=== PATIENT | female | born 1990 | race Caucasian/White ===

== ENCOUNTER 2018-04-08 05:45 | Inpatient (IN) | payer OTHER ==
[~2018-04-08] VITALS: Ht 160 cm; Wt 82.5 kg
--- NOTE | ~2018-04-08 | OR ---
[facility] [address] [place] [id number] Draft DATE OF OPERATION: 04/08/2018 SURGEON: Lauren Gautam DO PREOPERATIVE DIAGNOSES: 1. Large fibroid uterus. 2. Abnormal uterine bleeding. 3. Dysmenorrhea. POSTOPERATIVE DIAGNOSES: 1. Large fibroid uterus. 2. Abnormal uterine bleeding. 3. Dysmenorrhea. 4. Intraoperative cystotomy. PROCEDURES PERFORMED: 1. Laparoscopic bilateral salpingectomy. 2. Total abdominal hysterectomy. 3. Repair of intraoperative cystotomy performed by . 4. Cystoscopy performed by Dr. Hailey Rogers. QUALITY ENGINEERING MANAGER: Pedro Faye MD. INTRAOPERATIVE SURGICAL CONSULT: Hailey Rogers MD, Urology. ANESTHESIA: General. ESTIMATED BLOOD LOSS: 1400 mL. IV FLUIDS: Crystalloid 5100 mL, 2 units packed red blood cells. SPECIMENS: 1. Uterus with fibroids. 2. Bilateral fallopian tubes. 3. Cervix. PATIENT NAME: BHARAT RED OPERATIVE REPORT DATE OF : [birth year] REPORT #: [id number] PHYSICIAN: LAUREN GAUTAM DO PCP: SHYAM TOBAR REPORT IS CONFIDENTIAL AND NOT TO BE RELEASED WITHOUT AUTHORIZATION [facility] [address] [place] [id number] Draft CULTURES: None. DRAINS: Stovall catheter. IMPLANTS: None. FINDINGS: Large fibroid uterus filling the entire pelvis making laparoscopic hysterectomy unable to be performed. Normal tubes and ovaries bilaterally. Normal cervix and vagina. A cystotomy incidentally noted at the bladder dome intraoperatively and repaired with Dr. Hailey Rogers with Urology. Please see her notes for bladder repair and cystoscopy findings. Otherwise, hemostasis at the end of procedure. COMPLICATIONS: Intraoperative cystotomy. INDICATIONS: Ms. Red is a very pleasant 27-year-old G0, P0 white female with a long history of very large fibroid uterus. She has seen multiple gynecologists who have all recommended hysterectomy. She suffers from heavy painful periods and chronic pelvic pain. Plan for total laparoscopic hysterectomy, bilateral salpingectomy, and cystoscopy was discussed in detail with the patient and we reviewed the possibility of conversion to an open hysterectomy. Risks, benefits, and alternatives were discussed in detail with the patient. Patient understands and wishes to proceed with the procedure. TECHNIQUE: The patient was taken to the operating room. Time-out was performed to confirm correct patient, correct procedure. General anesthesia was adequately established. Patient was prepped and draped in dorsal lithotomy position with the feet in Yellofin stirrups. ICPs were on and running and Ancef 2 g were given preoperatively per skip protocol. Heparin was given preoperatively and the patient was typed and screened preoperatively. Preoperative hemoglobin was 14. A Stovall catheter was inserted and the surgeon's gloves were changed and attention was turned to the abdomen. The base of the umbilicus was infiltrated with 0.25% Marcaine with epinephrine and an incision was made using a surgical scalpel and curette. Incision was carried down to the fascia. The fascia was grasped with clamps, elevated, and entered sharply with Shane scissors. The fascial edges were suture ligated and the peritoneum was entered bluntly. A 10 mm Kevin port was placed after an S retractor showed no adhesions below the peritoneum. PATIENT NAME: BHARAT RDE OPERATIVE REPORT DATE OF : [birth year] REPORT #: [id number] PHYSICIAN: LAUREN GAUTAM DO PCP: SHYAM TOBAR REPORT IS CONFIDENTIAL AND NOT TO BE RELEASED WITHOUT AUTHORIZATION [facility] [address] [place], [place] [address] Draft Pneumoperitoneum was established with low opening pressures and survey of the abdomen and pelvis was performed. Normal upper abdomen was noted and in the pelvis a large wide uterus was noted. Assist ports were placed in the left and right lower quadrants under direct visualization and a VCare uterine manipulator was then placed while observing the fundus laparoscopically to avoid perforation and to aid in optimal placement for manipulation. Once VCare was properly positioned, surgeon's gloves were changed and attention was turned to attempt a total laparoscopic hysterectomy. The right tube was grasped at the fimbriated end, elevated and dissected using a LigaSure device. This was carried along the mesosalpinx and the tube was ligated at the cornua and delivered through the assist trocar. This process was repeated on the left side without difficulty. Normal tubes and ovaries were incidentally noted. The right utero-ovarian ligament was then fulgurated and divided using the LigaSure device and the process was again repeated on the left. The left round ligament was then fulgurated and divided with the LigaSure device and the leaves of broad ligament were begun to be dissected. Unfortunately, this was not able to be completed much beyond the round ligament due to the mass of the uterus. Attention was turned to the right round ligament and it was determined that it was not feasible to complete this case laparoscopically. Decision was made at this point to convert to an open total abdominal hysterectomy. Good hemostasis was appreciated at this point. Pneumoperitoneum was reduced. The assist ports were repaired using 4-0 Vicryl and the fascia at the umbilical incision was repaired using 0 Vicryl in a running nonlocked manner. The umbilical incision was then repaired using 4-0 Vicryl. The VCare manipulator was removed and the Stovall catheter remained in place. A vertical laparotomy was then performed using a surgical scalpel. The skin was incised from the pubic symphysis to just below the umbilicus. Bovie electrocautery was used to take down the subcu to the fascia. The fascia was nicked using a surgical scalpel and elevated using a Anju clamp. The fascial incision was then completed using a surgical scalpel. The rectus muscles were bluntly divided in the midline. The peritoneum was bluntly entered and peritoneal incision was extended, cephalad, caudad using blunt and sharp dissection. The uterus was again noted to be filling the entire pelvis from the anterior abdominal wall to the sacrum and [id number] completely. Decision was made to extend the abdominal incision slightly higher to accommodate better visualization. The incision was then brought to the left side of the umbilicus and fascial incision was extended. The fundus was grasped with a double-tooth tenaculum in order to assist with manipulation and visualization. The left anterior leaf of the broad ligament was then sharply divided using Metzenbaum scissors to just above the level of the cervix. The posterior leaf of the broad ligament was then divided using Metzenbaum scissors down to the level of the uterosacral ligament on the left. Attention was then turned to the right side. The round ligament was suture ligated and divided using Bovie electrocautery with good hemostasis noted. The anterior leaf of the broad ligament was then divided using Metzenbaum scissors down to the level of the cervix and the bladder was pushed well below the cervix. The posterior leaf of the broad ligament was then divided using Metzenbaum scissors again with good hemostasis PATIENT NAME: BHARAT RED OPERATIVE REPORT DATE OF : [birth year] REPORT #: [id number] PHYSICIAN: LAUREN GAUTAM DO PCP: SHYAM TOBAR REPORT IS CONFIDENTIAL AND NOT TO BE RELEASED WITHOUT AUTHORIZATION [facility] [address] [place], [place] [address] Draft noted. The ureter was identified bilaterally and noted to be well away from pedicles. Visualization of the pedicles was somewhat tenuous at this point due to the large bulk of the uterus and decision was made to proceed with interval myomectomy in order to improve visualization. Several large fibroids were removed by incising the peritoneum over the fibroid grasping the fibroid with a penetrating towel clamp and shelling them out bluntly and sharply using Shane scissors. Three large fibroids were removed in this manner in the lower half of the uterus making visualization much better. Some brisk bleeding was noted at this point and the defect in the uterus where the fibroids were shelled out were sutured using 0 Vicryl with much improved hemostasis. The uterine arteries on the left were then able to be identified. Again, noted to be well away from the ureters and clamped using curved Garcia scissors. They were then divided and then suture ligated with good hemostasis. The cardinal ligaments were then clamped, cut, and suture ligated on the left with good results. This process was repeated on the right. The patient continued to have some light bleeding at this point and significant hemodynamic changes were noted with the patient. She became difficult to perfuse and hypotensive. Anesthesia was concerned about a possible pulmonary embolism. The vagina was palpated and the cervix was able to be felt well. Curved Garcia clamps were placed bilaterally and Fior's scissors were used to amputate the cervix from the vaginal apex. Hemostasis was noted at this point, and at this point, estimated blood loss was approximately a 1000 mL. Decision was made to transfuse 2 units of packed red blood cells and anesthesia continued with resuscitation. The patient responded well. The vital signs were much improved. Please see anesthesia record for additional details. The vaginal cuff was then repaired using 0 Vicryl with careful attention to incorporate the uterosacral ligaments bilaterally. Upon completion of the repair of the vagina, it was noted that the bladder dome had a small rent in it and the Stovall catheter was visible. Dr. Hailey Rogers was consulted intraoperatively and she presented to assist with repair of the bladder dome. Please see her dictation for details. A cystoscopy was then performed by after successful repair of the bladder dome that noted a properly repaired bladder with bilateral ureteral jets. Scant amount of oozing was noted at the level of the cervix and this was repaired with superficial [id number]-[id number] sutures of 0 Vicryl. Once hemostasis was excellent, Evicel was applied to the pedicles bilaterally and the cuff. César self retractor was then removed. The peritoneum was reapproximated using 2-0 Vicryl in a running nonlocked manner. The fascia was then reapproximated using #1 PDS in a running nonlocked manner with interrupted 0 Vicryl sutures to reinforce fascial closure. Subcu was then reapproximated using 2-0 Vicryl in a running nonlocked manner. Skin was then reapproximated using surgical madelyn. The patient was then taken to the PACU in good and stable condition after receiving a TAP block by Anesthesia. Sponge, needle, and instrument count was correct x2 at the end the procedure. Dr. Faye was present participated in all portions of procedure and again we are grateful for the assistance of with the cystotomy repair. PATIENT NAME: BHARAT RED OPERATIVE REPORT DATE OF : [birth year] REPORT #: [id number] PHYSICIAN: LAUREN GAUTAM DO PCP: SHYAM TOBAR REPORT IS CONFIDENTIAL AND NOT TO BE RELEASED WITHOUT AUTHORIZATION [address] [place] [address] Draft Lauren Gautam DO JRETA/CHIQUI /[id number] Copies: ~ PATIENT NAME: BHARAT RED OPERATIVE REPORT DATE OF : [birth year] REPORT #: [id number] PHYSICIAN: LAUREN GAUTAM DO PCP: SHYAM TOBAR REPORT IS CONFIDENTIAL AND NOT TO BE RELEASED WITHOUT AUTHORIZATION
[2018-04-09] MEDS ORDERED: TYLENOL325 MG PO (09:36)
[2018-04-09] MEDS ORDERED: ADVIL200 MG PO (09:37)
[2018-04-09] MEDS ORDERED: LYSTEDA650 MG PO (09:38)
[2018-04-09] MEDS ORDERED: STOOL SOFTENER100 MG PO (09:38)
--- NOTE | 2018-04-12 09:02 | OR ---
[facility] [address] [place], [place] [address] Signed DATE OF OPERATION: 04/08/2018 SURGEON: Valentin Stoll MD PREOPERATIVE DIAGNOSIS: Iatrogenic cystotomy during complicated hysterectomy. POSTOPERATIVE DIAGNOSIS: Iatrogenic cystotomy during complicated hysterectomy. PROCEDURES PERFORMED: 1. Diagnostic cystoscopy. 2. Open repair of cystotomy (cystotomy closure). ASSISTING SURGEONS: 1. Lyndon Gautam DO. 2. Cory Faye MD. ANESTHESIA: General. ESTIMATED BLOOD LOSS: 25 mL. COMPLICATIONS: None. SPECIMENS: None. DRAINS: An 18-Luxembourgish Stovall catheter was inserted into the patient's bladder upon completion of the procedure. INDICATIONS FOR PROCEDURE: Ms. Red is a very pleasant 27-year-old female, who was reportedly experiencing severe menorrhagia and was found to have multiple large fibroids. She ultimately elected to undergo laparoscopic hysterectomy, which was ultimately converted to an open transabdominal hysterectomy due to the shear size of the uterus and complexity of the surgery. I was informed by Dr. Gautam that during the removal of the patient's very large Electronically Signed By: VALENTIN STOLL MD 04/12/18 0902 PATIENT NAME: BHARAT RED OPERATIVE REPORT DATE OF : [birth year] REPORT #: [id number] PHYSICIAN: VALENTIN STOLL MD PCP: SHYAM TOBAR REPORT IS CONFIDENTIAL AND NOT TO BE RELEASED WITHOUT AUTHORIZATION [facility] [address] [facility] [place], [place] [address] Signed uterus, there was a small hole made in the dome of the bladder. I was contacted for an intraoperative consultation, upon which time they requested that I perform closure of the iatrogenic cystotomy. OPERATIVE FINDINGS: 1. On initial inspection of the patient's bladder and vaginal cuff, I noted an approximately 2 cm cystotomy in the dome of the bladder. The cystotomy happened to be just inferior to the patient's vaginal cuff, which had already been closed completely by Dr. Gautam and Dr. Faye. Also of note was the moderately thin tissue layers noted at the dome of the bladder, in particularly the relative lack of detrusor muscle in this area. Upon closure inspection within the cystotomy, I am easily able to see healthy pink mucosa. 2. The small cystotomy was initially closed in a continuous running fashion using 2-0 Vicryl in two layers. We tested the closure multiple times using Similac; however, there appeared to be multiple gaps in the closure. After spending approximately 1 hour attempting to repair the gaps in the closure, the decision was made to open the repair and began again. 3. Our second attempt at closure of the repair was successful in that we were able to include very large bites of detrusor muscle in the 2nd layer of the repair. Overall, the bladder wall was repaired in two layers, i.e. the 1st layer was the mucosal layer, followed by the detrusor layer. The closure was tested once again and the bladder was filled with approximately 300 mL of Similac and was noted to be watertight at that time. 4. Diagnostic cystoscopy was performed after closure of the cystotomy and did reveal the presence of couple of blood clots within the bladder as well as recent closure of the mucosa at the dome of the bladder. Bilateral ureteral orifices were seen effluxing fluorescein, with no obvious evidence of iatrogenic damage to either ureter. Of note, the right ureter location has changed somewhat given the distortion from the cystotomy closure. At the end of this cystoscopy, an 18-Luxembourgish Stovall catheter was inserted into the patient's bladder and connected to gravity drainage. DESCRIPTION OF PROCEDURE: The patient was already placed under general anesthesia and Dr. Gautam and Dr. Faye had just completed a complicated abdominal hysterectomy. I evaluated the area of concern. Please see above findings. After the first attempt at cystotomy closure failed, we removed all the Vicryls used to close the patient's bladder and began again. Large Allis clamps were used to secure both the anterior and posterior wall of the cystotomy. I then started in the right corner of the cystotomy and took a couple of very large bites using 2-0 Vicryl of the lateral corner of the cystotomy. This was run in a simple interrupted fashion for a couple of stitches and then set aside. The same was done with the opposite corner of the cystotomy. I then used another 2-[address] needle and very gently closed the mucosal layer in a simple interrupted fashion. Once this was closed, I then closed the detrusor layer in a simple interrupted fashion Electronically Signed By: VALENTIN STOLL MD 04/12/18901 PATIENT NAME: BHARAT RED OPERATIVE REPORT DATE OF : [birth year] REPORT #: [id number] PHYSICIAN: VALENTIN STOLL MD PCP: SHYAM TOBAR REPORT IS CONFIDENTIAL AND NOT TO BE RELEASED WITHOUT AUTHORIZATION [address] [address] Signed running from the lateral edges towards the midline. The sutures were tied together to secure both ends of the closure. The cystotomy closure was then tested using 300 mL of Similac and there was no evidence of any leakage of fluid from the closure site. The patient's bladder was then drained and the catheter was removed. Diagnostic cystoscopy was then performed. Please see above findings. The patient's bladder was then drained and the cystoscope was removed. An 18-Luxembourgish 2-way Stovall catheter was inserted into the patient's bladder and connected to gravity drainage. The procedure was then terminated. The patient tolerated this portion of the procedure well without any complication. Please refer to Dr. Gautam's operative note for details regarding the hysterectomy portion of the case. DISPOSITION: I discussed the details of the cystotomy repair to the patient's mother and answered all of her questions. I have recommended that the patient maintain a Stovall catheter to gravity drainage for at least three weeks. She will be scheduled to return to clinic to see me on April 26 for followup and for Stovall catheter removal. I have asked that the patient undergo a cystogram under fluoroscopy a few days prior in order to evaluate the repair and to ensure patency of the bladder wall. The patient will receive IV Rocephin for the next few days while as an inpatient; however, she will not require oral antibiotics as an outpatient. We will discuss the results of her cystogram on the day of her postoperative followup visit. MD CARLOS Vidal/CHIQUI /[id number] Copies: ~ Electronically Signed By: VALENTIN STOLL MD 04/12/18 0902 PATIENT NAME: BHARAT RED OPERATIVE REPORT DATE OF : [birth year] REPORT #: [id number] PHYSICIAN: VALENTIN STOLL MD PCP: SHYAM TOBAR REPORT IS CONFIDENTIAL AND NOT TO BE RELEASED WITHOUT AUTHORIZATION
[2018-04-12] MEDS ORDERED: IBUPROFEN800 MG PO (17:49)
[2018-04-12] MEDS ORDERED: OXYCODONE-ACET1 EAC1 PO (17:50)
[2018-04-12] MEDS ORDERED: CALCIUM CARBON200 MG PO (17:52)
== END 2018-04-12 19:07 | disposition home or self-care (01) | DRG 742 ==
LOC: DS 05:45 → OPS 05:45 → DS 06:45 → OPS 06:45 → CCU 14:15 → OPS 14:16 → CCU 23:49 → OPS 23:50 → MS 04-09 12:14 → CCU 04-09 12:16 → MS 04-09 14:00
PROVIDERS: Urology; ADMIT Obstetrics & Gynecology
PROC: 0UT90ZZ Resection of Uterus, Open Approach (ICD-10-PCS; principal; 2018-04-08 06:45)
PROC: 0UT70ZZ Resection of Bilateral Fallopian Tubes, Open Approach (ICD-10-PCS; 2018-04-08 06:45)
PROC: 0TCB0ZZ Extirpation of Matter from Bladder, Open Approach (ICD-10-PCS; 2018-04-08 06:45)
PROC: 30233N1 Transfusion of Nonautologous Red Blood Cells into Peripheral Vein, Percutaneous Approach (ICD-10-PCS; 2018-04-10)
DX: D25.9 Leiomyoma of uterus, unspecified (principal); D62 Acute posthemorrhagic anemia; E66.9 Obesity, unspecified
CPT/HCPCS: 00944; 36415; 36430; 71260; 80048; 85025; 85379; 85384; 86850; 86900; 86901; 86920; 88307; J0131; J0690; J1100; J1200; J1644; J1650; J1885; J2250; J2270; J2405; J2550; J2704; J2795; J3010; J3475; J7120; P9016; Q9967

== ENCOUNTER 2020-03-05 19:29 | Emergency (ER) | payer OTHER ==
[~2020-03-05] VITALS: Ht 160 cm; Wt 82.6 kg
[~2020-03-05 19:29] MED LIST: ADVIL200 MG PO; CALCIUM CARBON200 MG PO; IBUPROFEN800 MG PO; LYSTEDA650 MG PO; OXYCODONE-ACET1 EAC1 PO; STOOL SOFTENER100 MG PO; TYLENOL325 MG PO
== END 2020-03-05 22:05 | disposition home or self-care (01) ==
LOC: ED 19:29
DX: N76.0 Acute vaginitis (principal); F17.200 Nicotine dependence, unspecified, uncomplicated; Z88.2 Allergy status to sulfonamides; Z88.1 Allergy status to other antibiotic agents
CPT/HCPCS: 81001; 87210; 87491; 87591; 99283